=== PATIENT | female | born 1990 | race African-American/Black ===

== ENCOUNTER 2016-12-01 01:29 | Emergency (ER) | payer OTHER ==
[~2016-12-01] VITALS: Ht 162.6 cm; Wt 60.9 kg
[~2016-12-01 01:29] MED LIST: CEFTIN500 MG PO; MOTRIN 600600 MG/TAB PO; MULTI VITAMINS1 TAB PO; PERCOCET 325 MG1 TA2 PO; PHENERGAN 25 TA25 MG PO; PRENATAL1 TA4 PO; [UNRECOGNIZED DRUG - OTHER] PO
[2016-12-01 01:31] VITALS: BP 131/83; TEMP 97.9
[2016-12-01] MEDS ORDERED: IMPLANON IL (01:35)
[2016-12-01 02:05] VITALS: PULSE 73
[2016-12-01] MEDS ORDERED: NORCO 325 MG-51 TAB PO (13:13)
== END 2016-12-01 02:06 | disposition home or self-care (01) ==
LOC: COL.ER 01:29
DX: S81.012A Laceration without foreign body, left knee, initial encounter (principal); W19.XXXA Unspecified fall, initial encounter

== ENCOUNTER 2016-12-01 12:23 | Emergency (ER) | payer OTHER ==
[~2016-12-01] VITALS: Ht 162.6 cm; Wt 60.9 kg
[~2016-12-01 12:23] MED LIST changes: +IMPLANON IL
[2016-12-01 12:24] VITALS: BP 128/74; TEMP 97.9
[2016-12-01] MEDS ORDERED: NORCO 325 MG-51 TAB PO (13:13)
[2016-12-01 13:29] VITALS: PULSE 98
== END 2016-12-01 13:29 | disposition home or self-care (01) ==
LOC: COL.ER 12:23
DX: S81.012D Laceration without foreign body, left knee, subsequent encounter (principal); W19.XXXD Unspecified fall, subsequent encounter

== ENCOUNTER 2019-07-02 07:21 | Emergency (ER) | payer MEDICAID ==
[~2019-07-02] VITALS: Ht 165.1 cm; Wt 67.7 kg
[~2019-07-02 07:21] MED LIST changes: +CLEOCIN VAGINA100 MG VG; +NORCO 325 MG-51 TAB PO
[2019-07-02 07:26] VITALS: TEMP 97.5
[2019-07-02 07:51] VITALS: BP 122/87
[2019-07-02 08:18] LABS: BASO # 0.1 (0.0-0.2); BASO % 0.8 % (0.0-2.0); EOS # 0.9 (0.0-0.7); EOS % 13.6 % (0-4.0); GRAN # 2.7 (1.4-6.5); GRAN % 41.3 % (42.2-75.2); HEMATOCRIT 45.9 % (37.0-47.0); LYMPH # 2.3 (1.2-3.4); LYMPH % 36.1 % (20.0-51.0); MEAN CELL VOLUME 86 fl (80.0-100.0); MEAN CORPUSCULAR HEMOGLOBIN 28 pg (27.0-31.0); MEAN CORPUSCULAR HGB CONC 33 g/dl (33.0-37.0); MEAN PLATELET VOLUME 9.6 fl (7.4-10.4); MONO # 0.5 (0.1-0.6); PLATELET COUNT 353 K/mm3 (130-400); RED BLOOD COUNT 5.37 M/mm3 (4.10-5.30); REDCELL DISTRIBUTION WIDTH-CV 13.3 % (11.5-14.5)
[2019-07-02 08:26] LABS: COLLECTION METHOD CATHETER
[2019-07-02 08:28] LABS: ALBUMIN 4.8 gm/dL (3.5-5.0); BILIRUBIN,TOTAL 0.3 mg/dL (0.0-1.0); CALCIUM 9.4 mg/dL (8.4-10.2); CREATININE, serum 0.92 (0.52-1.25); POTASSIUM 3.9 mmol/L (3.4-5.0); TOTAL PROTEIN 8.2 gm/dL (6.4-8.2)
[2019-07-02 08:36] LABS: MUCOUS Present /lpf; PH 6 (5-8); URINE APPEARANCE Hazy; URINE BACTERIA Occasional /hpf; URINE BILIRUBIN Negative (NEGATIVE); URINE BLOOD Negative (NEGATIVE); URINE COLOR Yellow; URINE GLUCOSE Negative (NEGATIVE); URINE KETONE Negative (NEGATIVE); URINE LEUKOCYTE ESTERASE Trace (NEGATIVE); URINE NITRATE Negative (NEGATIVE); URINE PROTEIN(semi-quant) Negative (NEGATIVE); URINE RBC 0-2 /hpf; URINE UROBILINOGEN Negative (NEGATIVE)
[2019-07-02 09:33] VITALS: PULSE 76
== END 2019-07-02 09:33 | disposition home or self-care (01) ==
LOC: COL.ER 07:21
PROVIDERS: Emergency Medicine
DX: N93.9 Abnormal uterine and vaginal bleeding, unspecified (principal); E16.2 Hypoglycemia, unspecified; F17.210 Nicotine dependence, cigarettes, uncomplicated

== ENCOUNTER 2020-01-02 18:06 | Emergency (ER) | payer MEDICAID ==
[~2020-01-02] VITALS: Ht 165.1 cm; Wt 72.5 kg
[2020-01-02 18:14] VITALS: BP 130/77; PULSE 106; TEMP 98.1
[2020-01-02] MEDS ORDERED: NAPROSYN 2250 MG/TAB PO (18:36)
[2020-01-02] MEDS ORDERED: MEDROL 4MG DOSPA4 MG PO (18:36)
== END 2020-01-02 18:51 | disposition home or self-care (01) ==
LOC: COL.ER 18:06
DX: M54.12 Radiculopathy, cervical region (principal)

== ENCOUNTER 2020-03-20 22:09 | Emergency (ER) | payer MEDICAID ==
[~2020-03-20] VITALS: Ht 165.1 cm; Wt 67.3 kg
[~2020-03-20 22:09] MED LIST changes: +MEDROL 4MG DOSPA4 MG PO; +NAPROSYN 2250 MG/TAB PO
[2020-03-20 22:22] VITALS: BP 152/99; TEMP 98.5
[2020-03-20 22:50] LABS: COLLECTION METHOD CLEAN CATCH
[2020-03-20 23:00] LABS: MUCOUS Present /lpf; PH 6 (5-8); URINE APPEARANCE Hazy; URINE BACTERIA None Seen /hpf; URINE BILIRUBIN Positive (NEGATIVE); URINE BLOOD Negative (NEGATIVE); URINE COLOR Yellow; URINE GLUCOSE 1+ (NEGATIVE); URINE KETONE 2+ (NEGATIVE); URINE LEUKOCYTE ESTERASE 1+ (NEGATIVE); URINE NITRATE Negative (NEGATIVE); URINE PROTEIN(semi-quant) Negative (NEGATIVE); URINE RBC 0-2 /hpf; URINE UROBILINOGEN >=4.0 mg/dL (NEGATIVE)
[2020-03-21 00:32] VITALS: PULSE 97
== END 2020-03-21 00:25 | disposition home or self-care (01) ==
LOC: COL.ER 22:09
PROVIDERS: Emergency Medicine; Nurse Practitioner
DX: R10.2 Pelvic and perineal pain (principal); F17.210 Nicotine dependence, cigarettes, uncomplicated
CPT/HCPCS: J0696

== ENCOUNTER 2020-04-10 21:41 | Emergency (ER) | payer MEDICAID ==
[~2020-04-10] VITALS: Ht 165.1 cm; Wt 68.2 kg
[2020-04-10 21:43] VITALS: TEMP 97.9
[2020-04-10 22:05] LABS: BASO # 0.1 (0.0-0.2); BASO % 0.8 % (0.0-2.0); EOS # 0.8 (0.0-0.7); EOS % 10.1 % (0-4.0); GRAN # 3.7 (1.4-6.5); GRAN % 46.6 % (42.2-75.2); HEMATOCRIT 43.1 % (37.0-47.0); HEMOGLOBIN 14.2 g/dl (12.5-16.0); LYMPH # 2.7 (1.2-3.4); LYMPH % 33.3 % (20.0-51.0); MEAN CELL VOLUME 88 fl (80.0-100.0); MEAN CORPUSCULAR HEMOGLOBIN 29 pg (27.0-31.0); MEAN CORPUSCULAR HGB CONC 33 g/dl (33.0-37.0); MEAN PLATELET VOLUME 9.8 fl (7.4-10.4); MONO # 0.7 (0.1-0.6); MONO % 8.9 % (1.7-9.3); PLATELET COUNT 330 K/mm3 (130-400); RED BLOOD COUNT 4.88 M/mm3 (4.10-5.30); REDCELL DISTRIBUTION WIDTH-CV 13.2 % (11.5-14.5)
[2020-04-10 22:16] LABS: ALANINE AMINOTRANSFERASE 24 U/L (4-34); ALBUMIN 4.2 gm/dL (3.5-5.0); ALKALINE PHOSPHATASE 82 U/L (50-136); ANION GAP 7 mmol/L (7-16); AST,SGOT 49 U/L (15-37); BILIRUBIN,TOTAL 1.3 mg/dL (0.0-1.0); BLOOD UREA NITROGEN 11 mg/dL (7-17); CALCIUM 8.5 mg/dL (8.4-10.2); CARBON DIOXIDE 21 mmol/L (22-30); CHLORIDE 107 mmol/L (98-107); CREATININE, serum 0.78 (0.52-1.25); GLUCOSE 87 mg/dL (74-106); POTASSIUM 3.6 mmol/L (3.4-5.0); SODIUM 136 mmol/L (137-145); TOTAL PROTEIN 7.6 gm/dL (6.4-8.2)
[2020-04-10] MEDS ORDERED: FLEXERIL 1010 MG/TAB PO (22:19)
[2020-04-10 22:21] LABS: C-REACTIVE PROTEIN < 0.5 mg/dL (0.0-0.9)
[2020-04-10 23:35] VITALS: BP 135/88; PULSE 62
== END 2020-04-10 23:35 | disposition home or self-care (01) ==
LOC: COL.ER 21:41
PROVIDERS: Family Medicine
DX: S46.911A Strain of unspecified muscle, fascia and tendon at shoulder and upper arm level, right arm, initial encounter (principal); X58.XXXA Exposure to other specified factors, initial encounter
CPT/HCPCS: J1885; J7120